=== PATIENT | male | born 1965 | race Hispanic/Latino ===

== ENCOUNTER 2019-12-14 11:42 | Emergency (ER) | payer MEDICAID ==
[2019-12-14 12:14] VITALS: BP 133/82
--- NOTE | 2019-12-14 15:48 | Emergency Department Report ---
Chief Complaint: Skin/Abscess/Foreign Body Stated Complaint: BUG IN EAR Time Seen by Provider: 12/14/19 15:44 - HPI History of Present Illness: 53-year-old male presents to the emergency room stating he feels he has a bug in his right ear that he noticed last night. Patient states that he stand had a air B&B and feels that the place is clean. Patient denies any pain but just states that it was uncomfortable. Patient has a past medical history of bipolar and HIV. - Exam Vital Signs: Vital Signs 12/14/19 12:13 Temperature 98.3 F Pulse Rate 86 Respiratory 20 Rate Blood Pressure 133/82 O2 Sat by Pulse 95 Oximetry Physical Exam: Patient is alert and oriented x3 no acute distress nontoxic in appearance H EENT left ear is clear right ear is clear tympanic membrane is nonretractable nonerythematous no edema in the canal. Patient is amatory without difficulties. MSE screening note: Focused history and physical exam performed. Due to findings the following was ordered: 53-year-old male presents to the emergency room stating he feels he has a bug in his right ear that he noticed last night. Patient states that he stand had a air B&B and feels that the place is clean. Patient denies any pain but just states that it was uncomfortable. Patient has a past medical history of bipolar and HIV. Discussed with patient that his ears are clear there is no signs of foreign objects. Patient verbalized understanding. ED Disposition for MSE Disposition: Z-07 MED SCREENING EXAM-LEFT Is pt being admited?: No Does the pt Need Aspirin: No Condition: Stable Additional Instructions: Follow-up with your primary care provider if you have any further concerns. Referrals: PRIMARY CARE, [Primary Care Provider] - 3-5 Days
== END 2019-12-14 15:46 | disposition left against medical advice (07) ==
LOC: ED 11:42
DX: H92.01 Otalgia, right ear (principal); Z53.21 Procedure and treatment not carried out due to patient leaving prior to being seen by health care provider

== ENCOUNTER 2020-02-12 11:20 | Emergency (ER) | payer MEDICAID ==
[2020-02-12 13:19] LABS: Basophils % (Auto) 1.1 % (0.0-1.8); Eosinophils # (Auto) 0.1 K/mm3 (0.0-0.4); Eosinophils % (Auto) 3.6 % (0.0-4.3); Lymphocytes # (Auto) 1.2 K/mm3 (1.2-5.4); Lymphocytes % (Auto) 36.4 % (13.4-35.0); Mean Corpuscular HGB Conc 36 % (32-34); Mean Corpuscular Volume 92 fl (84-94); Monocytes # (Auto) 0.3 K/mm3 (0.0-0.8); Monocytes % (Auto) 7.9 % (0.0-7.3); Platelet Count 173 K/mm3 (140-440); Red Blood Count 4.92 M/mm3 (3.65-5.03)
[2020-02-12 13:22] LABS: Hematocrit 45.3 % (35.5-45.6); Hemoglobin 16.2 gm/dl (11.8-15.2)
[2020-02-12 13:40] LABS: Alanine Aminotransferase 52 units/L (7-56); Albumin 3.9 g/dL (3.9-5); BUN/Creatinine Ratio 7; Blood Urea Nitrogen 6 mg/dL (9-20); Calcium 9.4 mg/dL (8.4-10.2); Hemolysis Index 38
[2020-02-12] MEDS ORDERED: SODIUM CHLORIDE 0.9% 1000 ML 1,000 ML IV ONE (13:45)
[2020-02-12] MEDS ORDERED: ONDANSETRON 4 MG/2 ML INJ IV ONE (13:45)
[2020-02-12] MEDS ORDERED: MORPHINE 4 MG/1 ML INJ IV ONE (13:45)
[2020-02-12] MEDS ORDERED: DOCUSATE SODIUM 100 MG CAP PO ONE (13:46)
[2020-02-12] MEDS ORDERED: POTASSIUM CHLORIDE ER 20 MEQ TAB PO ONE (13:46)
--- NOTE | 2020-02-12 15:03 | Cat Scan Report ---
CT ABDOMEN AND PELVIS WITH CONTRAST INDICATION / CLINICAL INFORMATION: left sided abd pain, abd bloating. TECHNIQUE: Axial CT images were obtained through the abdomen and pelvis after 100 cc of Omnipaque 300 IV contras t. Sagittal and coronal reformatted images. All CT scans at this location are performed using CT dose reduction for ALARA by means of automated exposure control. COMPARISON: None available. FINDINGS: LOWER CHEST: No significant abnormality. LIVER: No significant abnormality. Focal fatty change along the falciform ligament is noted. GALLBLADDER: No significant abnormality. BILE DUCTS: No significant abnormality. PANCREAS: No significant abnormality. SPLEEN: No significant abnormality. 1.6 cm cyst or hemangioma is noted in the posterior spleen. ADRENALS: No significant abnormality. RIGHT KIDNEY and URETER: No significant abnormality. LEFT KIDNEY and URETER: No significant abnormality. STOMACH and SMALL BOWEL: No significant abnormality. COLON: No significant abnormality. APPENDIX: No significant abnormality. PERITONEUM: No free fluid. No free air. No fluid collection. LYMPH NODES: No significant adenopathy. AORTA and ARTERIES: No significant abnormality. IVC and VEINS: No significant abnormality. URINARY BLADDER: No significant abnormality. REPRODUCTIVE ORGANS: No significant abnormality. ADDITIONAL FINDINGS: Small umbilical hernia containing fat. SKELETAL SYSTEM: No significant abnormality. IMPRESSION: No acute process is identified in the abdomen or pelvis. No clear explanation for left abdominal deacon n on CT. Signer Name: Richard Garcia Jr, MD Signed: 02/12/2020 2:58 PM Workstation Name: [id number]
--- NOTE | 2020-02-12 15:38 | Emergency Department Report ---
ED General Adult HPI - General Chief complaint: Abdominal Pain Stated complaint: ABD PAIN/SWELLING/RASH Time Seen by Provider: 02/12/20 13:11 Source: patient Mode of arrival: Ambulatory Limitations: No Limitations - History of Present Illness Initial comments: Patient is a 54-year-old male presents emergency room with complaints of left- sided abdominal pain that began last night. He states that his abdomen feels bloated. He states that he did have a bowel movement this morning but was straining to have a bowel movement. He denies any nausea, vomiting, diarrhea, fever, hematemesis, hematochezia, melena, pus in the stool. He states that he also noticed a rash diffusely a couple of days ago. He denies anyone else with the same rash. He denies ever having this in the past. He states that he is staying at a air bnb which he uses new detergent. He denies anyone else with the same rash. He has a past medical history of HIV and states that he is on his antivirals and reports that he is undetectable. No allergies to medications. pt states that he has also had a wound to the buttock region for over a week which he states he accidentally hit something in his air bnb. Severity scale (0 -10): 7 - Related Data Previous Rx's Medication Instructions Recorded Last Taken Type Docusate Sodium [Colace] 100 mg PO BID PRN #20 capsule 02/12/20 Unknown Rx Neomycin/Bacitracin/Polymyxinb 1 applicatio TP BID #1 oint...g. 02/12/20 Unknown Rx [Triple Antibiotic Ointment] Polyethylene Glycol 3350 [Miralax] 7 gm PO DAILY PRN #1 powder 02/12/20 Unknown Rx Sulfamethoxazole/Trimethoprim 1 each PO BID 7 Days #14 tablet 02/12/20 Unknown Rx [Bactrim DS TAB] Allergies Allergy/AdvReac Type Severity Reaction Status Date / Time No Known Allergies Allergy Unverified 12/14/19 12:11 ED Review of Systems ROS: Stated complaint: ABD PAIN/SWELLING/RASH Other details as noted in HPI Comment: All other systems reviewed and negative ED Past Medical Hx - Past Medical History Hx GERD: Yes Hx Psychiatric Treatment: Yes (BIPOLAR) Hx Asthma: Yes Hx HIV: Yes Additional medical history: HIV - Surgical History Additional Surgical History: CARPEL TUNNEL X2 - Social History Smoking Status: Current Every Day Smoker Substance Use Type: None - Medications Home Medications: Home Medications Medication Instructions Recorded Confirmed Last Taken Type Docusate Sodium [Colace] 100 mg PO BID PRN #20 capsule 02/12/20 Unknown Rx Neomycin/Bacitracin/Polymyxinb 1 applicatio TP BID #1 oint...g. 02/12/20 Unknown Rx [Triple Antibiotic Ointment] Polyethylene Glycol 3350 [Miralax] 7 gm PO DAILY PRN #1 powder 02/12/20 Unknown Rx Sulfamethoxazole/Trimethoprim 1 each PO BID 7 Days #14 tablet 02/12/20 Unknown Rx [Bactrim DS TAB] ED Physical Exam - General Limitations: No Limitations General appearance: alert, in no apparent distress - Head Head exam: Present: atraumatic, normocephalic - Eye Eye exam: Present: normal appearance - ENT ENT exam: Present: mucous membranes moist - Respiratory Respiratory exam: Present: normal lung sounds bilaterally. Absent: respiratory distress, wheezes, rales, rhonchi, stridor, chest wall tenderness, accessory muscle use, decreased breath sounds, prolonged expiratory - Cardiovascular Cardiovascular Exam: Present: regular rate, normal rhythm, normal heart sounds. Absent: systolic murmur, diastolic murmur, rubs, gallop - GI/Abdominal GI/Abdominal exam: Present: soft, distended (mild), normal bowel sounds. 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, there is scabbing and open skin abrasion present to the gluteal cleft region, there is surrounding erythema, no edema, no fluctuance, no drainage, no necrosis, no blistering, does not involve the rectum or perineum space, there is also very small circular erythematous macules present to the RUE and BLE, no mucosal involvement, no skin denuding, no blistering, no necrosis) ED Course Vital Signs 02/12/20 02/12/20 02/12/20 11:57 13:10 13:58 Temperature 98.7 F Pulse Rate 103 H Respiratory 18 18 18 Rate Blood Pressure 120/73 Blood Pressure [Left] O2 Sat by Pulse 98 99 Oximetry 02/12/20 02/12/20 14:28 16:56 Temperature Pulse Rate 84 Respiratory 18 16 Rate Blood Pressure Blood Pressure 100/67 [Left] O2 Sat by Pulse 95 Oximetry ED Medical Decision Making - Lab Data Result diagrams: 02/12/20 12:59 02/12/20 12:59 Lab Results 02/12/20 02/12/20 02/12/20 Range/Units 12:59 12:59 14:10 WBC 3.4 L (4.5-11.0) K/mm3 RBC 4.92 (3.65-5.03) M/mm3 Hgb 16.2 H (11.8-15.2) gm/dl Hct 45.3 (35.5-45.6) % MCV 92 (84-94) fl MCH 33 H (28-32) pg MCHC 36 H (32-34) % RDW 13.0 L (13.2-15.2) % Plt Count 173 (140-440) K/mm3 Lymph % (Auto) 36.4 H (13.4-35.0) % [place] % (Auto) 7.9 H (0.0-7.3) % Eos % (Auto) 3.6 (0.0-4.3) % Baso % (Auto) 1.1 (0.0-1.8) % Lymph # 1.2 (1.2-5.4) K/mm3 [place] # 0.3 (0.0-0.8) K/mm3 Eos # 0.1 (0.0-0.4) K/mm3 Baso # 0.0 (0.0-0.1) K/mm3 Seg Neutrophils % 51.0 (40.0-70.0) % Seg Neutrophils # 1.7 L (1.8-7.7) K/mm3 Sodium 141 (137-145) mmol/L Potassium 3.3 L (3.6-5.0) mmol/L Chloride 100.7 (98-107) mmol/L Carbon Dioxide 27 (22-30) mmol/L Anion Gap 17 mmol/L BUN 6 L (9-20) mg/dL Creatinine 0.9 (0.8-1.3) mg/dL Estimated GFR > 60 ml/min BUN/Creatinine Ratio 7 % Glucose 104 H (75-100) mg/dL Calcium 9.4 (8.4-10.2) mg/dL Total Bilirubin 0.40 (0.1-1.2) mg/dL AST 60 H (5-40) units/L ALT 52 (7-56) units/L Alkaline Phosphatase 62 (35-129) units/L Total Protein 6.1 L (6.3-8.2) g/dL Albumin 3.9 (3.9-5) g/dL Albumin/Globulin Ratio 1.8 % Lipase 73 H (13-60) units/L Urine Color (Yellow) Urine Turbidity (Clear) Urine pH (5.0-7.0) Ur Specific [place] (1.003-1.030) Urine Protein (Negative) mg/dL Urine Glucose (UA) (Negative) mg/dL Urine Ketones (Negative) mg/dL Urine Blood (Negative) Urine Nitrite (Negative) Urine Bilirubin (Negative) Urine Urobilinogen (<2.0) mg/dL Ur Leukocyte Esterase (Negative) Urine WBC (Auto) (0.0-6.0) /HPF Urine RBC (Auto) (0.0-6.0) /HPF Urine Mucus /HPF 02/12/20 Range/Units Unknown WBC (4.5-11.0) K/mm3 RBC (3.65-5.03) M/mm3 Hgb (11.8-15.2) gm/dl Hct (35.5-45.6) % MCV (84-94) fl MCH (28-32) pg MCHC (32-34) % RDW (13.2-15.2) % Plt Count (140-440) K/mm3 Lymph % (Auto) (13.4-35.0) % [place] % (Auto) (0.0-7.3) % Eos % (Auto) (0.0-4.3) % Baso % (Auto) (0.0-1.8) % Lymph # (1.2-5.4) K/mm3 [place] # (0.0-0.8) K/mm3 Eos # (0.0-0.4) K/mm3 Baso # (0.0-0.1) K/mm3 Seg Neutrophils % (40.0-70.0) % Seg Neutrophils # (1.8-7.7) K/mm3 Sodium (137-145) mmol/L Potassium (3.6-5.0) mmol/L Chloride (98-107) mmol/L Carbon Dioxide (22-30) mmol/L Anion Gap mmol/L BUN (9-20) mg/dL Creatinine (0.8-1.3) mg/dL Estimated GFR ml/min BUN/Creatinine Ratio % Glucose (75-100) mg/dL Calcium (8.4-10.2) mg/dL Total Bilirubin (0.1-1.2) mg/dL AST (5-40) units/L ALT (7-56) units/L Alkaline Phosphatase (35-129) units/L Total Protein (6.3-8.2) g/dL Albumin (3.9-5) g/dL Albumin/Globulin Ratio % Lipase (13-60) units/L Urine Color Yellow (Yellow) Urine Turbidity Clear (Clear) Urine pH 7.0 (5.0-7.0) Ur Specific [place] 1.027 (1.003-1.030) Urine Protein <15 mg/dl (Negative) mg/dL Urine Glucose (UA) Neg (Negative) mg/dL Urine Ketones Neg (Negative) mg/dL Urine Blood Neg (Negative) Urine Nitrite Neg (Negative) Urine Bilirubin Neg (Negative) Urine Urobilinogen < 2.0 (<2.0) mg/dL Ur Leukocyte Esterase Neg (Negative) Urine WBC (Auto) < 1.0 (0.0-6.0) /HPF Urine RBC (Auto) 1.0 (0.0-6.0) /HPF Urine Mucus Few /HPF Vital Signs 02/12/20 02/12/20 02/12/20 11:57 13:10 13:58 Temperature 98.7 F Pulse Rate 103 H Respiratory 18 18 18 Rate Blood Pressure 120/73 Blood Pressure [Left] O2 Sat by Pulse 98 99 Oximetry 02/12/20 02/12/20 14:28 16:56 Temperature Pulse Rate 84 Respiratory 18 16 Rate Blood Pressure Blood Pressure 100/67 [Left] O2 Sat by Pulse 95 Oximetry - Radiology Data Radiology results: report reviewed, image reviewed CT ABDOMEN AND PELVIS WITH CONTRAST INDICATION / CLINICAL INFORMATION: left sided abd pain, abd bloating. TECHNIQUE: Axial CT images were obtained through the abdomen and pelvis after 100 cc of Omnipaque 300 IV contrast. Sagittal and coronal reformatted images. All CT scans at this location are performed using CT dose reduction for ALARA by means of automated exposure control. COMPARISON: None available. FINDINGS: LOWER CHEST: No significant abnormality. LIVER: No significant abnormality. Focal fatty change along the falciform l igament is noted. GALLBLADDER: No significant abnormality. BILE DUCTS: No significant abnormality. PANCREAS: No significant abnormality. SPLEEN: No significant abnormality. 1.6 cm cyst or hemangioma is noted in the posterior spleen. ADRENALS: No significant abnormality. RIGHT KIDNEY and URETER: No significant abnormality. LEFT KIDNEY and URETER: No significant abnormality. STOMACH and SMALL BOWEL: No significant abnormality. COLON: No significant abnormality. APPENDIX: No significant abnormality. PERITONEUM: No free fluid. No free air. No fluid collection. LYMPH NODES: No significant adenopathy. AORTA and ARTERIES: No significant abnormality. IVC and VEINS: No significant abnormality. URINARY BLADDER: No significant abnormality. REPRODUCTIVE ORGANS: No significant abnormality. ADDITIONAL FINDINGS: Small umbilical hernia containing fat. SKELETAL SYSTEM: No significant abnormality. IMPRESSION: No acute process is identified in the abdomen or pelvis. No clear explanation for left abdominal pain on CT. Signer Name: Richard Woo Jr, MD Signed: 02/12/2020 2:58 PM Workstation Name: [id number] Transcribed By: TTR Dictated By: RICHARD WOO JR, MD Electronically Authenticated By: RICHARD WOO JR, MD Signed Date/Time: 02/12/201457 DD/ 53 TD/TT: - Medical Decision Making Patient is a 54-year-old male presents emergency room with complaints of left- sided abdominal pain that began last night. He states that his abdomen feels bloated. He states that he did have a bowel movement this morning but was straining to have a bowel movement. He denies any nausea, vomiting, diarrhea, fever, hematemesis, hematochezia, melena, pus in the stool. He states that he also noticed a rash diffusely a couple of days ago. He denies anyone else with the same rash. He denies ever having this in the past. He states that he is staying at a air bnb which he uses new detergent. He denies anyone else with the same rash. He has a past medical history of HIV and states that he is on his antivirals and reports that he is undetectable. No allergies to medications. pt states that he has also had a wound to the buttock region for over a week which he states he accidentally hit something in his air bnb. Initial vitals with mild tachycardia which improved to normal upon repeat. 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 Examination of the skin appears consistent with abrasion with mild surrounding cellulitis, no abscess. He has a nonspecific diffuse rash could be related to recent change in detergent but will have patient follow-up with primary care doctor. Labs with mild hypokalemia and mild increase in AST but otherwise LFTs are normal. CT abd pelvis: No acute process is identified in the abdomen or pelvis. No clear explanation for left abdominal pain on CT. patient given 1 L normal saline, Zofran, morphine, Colace, kdur. pt was feeling much better and ready to go home. discussed all results with pt and answered questions. pt given prescription for bactrim, triple abx ointment, colace, miralax. advised pt Please use medication as prescribed. Follow-up with a GI doctor. Follow-up with your primary care doctor. Follow-up with your infectious disease doctor. Return to emergency room for any new or worsening symptoms. - Differential Diagnosis colitis, obstruction, mass, pancreatitis, hepatitis, gas pain, constipation Critical care attestation.: If time is entered above; I have spent that time in minutes in the direct care of this critically ill patient, excluding procedure time. ED Disposition Clinical Impression: Rash Abdominal pain Qualifiers: Abdominal location: left lower quadrant Qualified Code(s): R10.32 - Left lower quadrant pain Constipation Qualifiers: Constipation type: unspecified constipation type Qualified Code(s): K59.00 - Constipation, unspecified Abrasion of buttock Qualifiers: Encounter type: initial encounter Qualified Code(s): S30.810A - Abrasion of lower back and pelvis, initial encounter Disposition: - TO HOME OR SELFCARE Is pt being admited?: No Does the pt Need Aspirin: No Condition: Stable Instructions: Constipation (ED), High Fiber Diet (ED), Acute Rash (ED), Abrasion (ED), Abdominal Pain (ED) Additional Instructions: Please use medication as prescribed. Follow-up with a GI doctor. Follow-up with your primary care doctor. Follow-up with your infectious disease doctor. Return to emergency room for any new or worsening symptoms. Prescriptions: Sulfamethoxazole/Trimethoprim [Bactrim DS TAB] 1 each PO BID 7 Days #14 tablet Docusate Sodium [Colace] 100 mg PO BID PRN #20 capsule PRN Reason: Constipation Polyethylene Glycol 3350 [Miralax] 7 gm PO DAILY PRN #1 powder PRN Reason: Constipation Neomycin/Bacitracin/Polymyxinb [Triple Antibiotic Ointment] 1 applicatio TP BID #1 oint...g. Referrals: PRIMARY CARE, [Primary Care Provider] - 2-3 Days your, infectious disease doctor [Other] - 2-3 Days [facility] [Provider Group] - 2-3 Days Time of Disposition: 16:31 Print Language: ROMANIAN
[2020-02-12 16:07] LABS: Bilirubin,Urine NEG (Negative); Blood,Urine NEG (Negative); Color,Urine Yellow (Yellow); Mucus,Urine FEW /HPF; Protein,Urine <15 mg/dL mg/dL (Negative); Urobilinogen,Urine < 2.0 mg/dL (<2.0)
[2020-02-12 16:26] LABS: WBC,Urine < 1.0 /HPF (0.0-6.0)
[2020-02-12 16:59] VITALS: BP 100/67
== END 2020-02-12 17:00 | disposition home or self-care (01) ==
LOC: ED 11:20
DX: S30.810A Abrasion of lower back and pelvis, initial encounter (principal); K59.00 Constipation, unspecified; R21 Rash and other nonspecific skin eruption; R10.9 Unspecified abdominal pain; K21.9 Gastro-esophageal reflux disease without esophagitis; F31.9 Bipolar disorder, unspecified; J45.909 Unspecified asthma, uncomplicated; Z21 Asymptomatic human immunodeficiency virus [HIV] infection status; F17.200 Nicotine dependence, unspecified, uncomplicated; Z98.890 Other specified postprocedural states; Z79.2 Long term (current) use of antibiotics; Z79.899 Other long term (current) drug therapy; X58.XXXA Exposure to other specified factors, initial encounter; Y93.89 Activity, other specified; Y92.89 Other specified places as the place of occurrence of the external cause; Y99.8 Other external cause status
CPT/HCPCS: 36415; 74177; 80053; 81001; 83690; 85025; 96361; 96374; 96375; 99284; J2270; J2405; J7030; Q9967